=== PATIENT | male | born 1995 | race Caucasian/White ===

== ENCOUNTER 2016-08-23 22:37 | Emergency (ER) | payer BC ==
[2016-08-23 22:58] VITALS: BP 122/63; PULSE 110; RESP 18; TEMP 98
[2016-08-24 00:23] LABS: Appearance,Urine Cloudy (Clear); Bilirubin,Urine Negative (Negative); Glucose,Urine (UA) Negative (Negative); Ketones,Urine Negative (Negative); Leukocyte Esterase,Urine Large (Negative); Mucus,Urine Few /hpf; Nitrite,Urine Negative (Negative); Particle Count 6372; Protein,Urine 1+ (Negative); RBC,Urine 12 /hpf (0-5); Specific Gravity,Urine 1.023 (1.001-1.035); Squamous Epithelial Cell,Urine <1 /hpf (0-4); UA Billing (MACRO vs. MICRO) MICRO; Urobilinogen,Urine <2.0 mg/dL (<2.0); WBC,Urine >182 /hpf (0-5)
--- NOTE | 2016-08-24 00:29 | ED ---
Male Urogenital HPI - General Chief complaint: Urogenital Stated complaint: Male Time Seen by Provider: 08/23/16 23:43 Source: patient, RN notes reviewed Mode of arrival: ambulatory Limitations: no limitations - History of Present Illness Initial comments: Patient is a 21-year-old male presents emergency room for evaluation right testicle pain and dysuria. Patient states she began having right testicle pain about a week ago. Patient states since then the pain is gone worsening Swelling and erythema. Patient also states he been experiencing pain and burning during urination for the past week. Patient states that his girlfriend was diagnosed with Chlamydia about a month and a half ago and he was also written a prescription to be treated for it. Patient states he was never actually diagnosed with chlamydia. Patient denies any penile discharge. Patient denies any abdominal pain. Patient denies any fevers or chills. Patient denies nausea or vomiting. Patient denies any other history of STDs. - Related Data Home Medications Medication Instructions Recorded Confirmed No Known Home Medications [No 08/23/16 08/23/16 Known Home Medications] Allergies Allergy/AdvReac Type Severity Reaction Status Date / Time No Known Allergies Allergy Verified 08/23/16 22:57 Review of Systems ROS Statement: Those systems with pertinent positive or pertinent negative responses have been documented in the HPI. ROS Other: All systems not noted in ROS Statement are negative. 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 Limitations: no limitations General appearance: alert, in no apparent distress Head exam: Present: atraumatic, normocephalic, normal inspection Eye exam: Present: normal appearance ENT exam: Present: normal exam Neck exam: Present: normal inspection Respiratory exam: Absent: respiratory distress exam: Present: testicular tenderness (right), scrotal swelling (right), circumcision. Absent: urethral discharge Extremities exam: Present: normal inspection Back exam: Present: normal inspection Neurological exam: Present: alert, oriented X3, CN II-XII intact, normal gait Psychiatric exam: Present: normal affect, normal mood Skin exam: Present: warm, dry, intact, normal color. Absent: rash Course Vital Signs 08/23/16 22:52 Temperature 98.0 F Pulse Rate 110 H Respiratory 18 Rate Blood Pressure 122/63 O2 Sat by Pulse 97 Oximetry Medical Decision Making - Medical Decision Making Patient is 21-year-old male presents emergency room for evaluation of right scrotal pain and dysuria. Patient's urine suspicious for urinary tract infection. Patient's symptoms most likely cause from epididymitis. Chlamydia and gonorrhea cultures pending in urine. Will prophylactically treat patient with Rocephin and azithromycin. Scrotal ultrasound pending. Case discussed and passed on to Dr. Kmuar at 1:10 AM. - Lab Data Lab Results 08/24/16 Range/Units 00:05 Urine Color Yellow Urine Appearance Cloudy (Clear) Urine pH 6.0 (5.0-8.0) Ur Specific [place] 1.023 (1.001-1.035) Urine Protein 1+ H (Negative) Urine Glucose (UA) Negative (Negative) Urine Ketones Negative (Negative) Urine Blood Negative (Negative) Urine Nitrate Negative (Negative) Urine Bilirubin Negative (Negative) Urine Urobilinogen <2.0 (<2.0) mg/dL Ur Leukocyte Esterase Large H (Negative) Urine RBC 12 H (0-5) /hpf Urine WBC >182 H (0-5) /hpf Ur Squamous Epith Cells <1 (0-4) /hpf Urine Mucus Few H (None) /hpf Disposition Clinical Impression: Epididymitis Disposition: HOME SELF-CARE Condition: Good Instructions: Urinary Tract Infection in Men (ED), Epididymitis (ED) Additional Instructions: Please follow up with primary care provider in 24-48 hours. Take Tylenol or Motrin as in for pain. If any new symptom arises, symptoms worsen or fever develops, return to ER as soon as possible. Referrals: None,Stated [Primary Care Provider] - 1-2 days Time of Disposition: 01:55
[2016-08-24] MEDS ORDERED: cefTRIAXone 1,000 MG VIAL (IM USE) IM STA (01:13)
[2016-08-24] MEDS ORDERED: AZITHROMYCIN 500 MG TAB PO STA (01:14)
--- NOTE | 2016-08-24 01:30 | US ---
EXAMINATION TYPE: US scrotum with doppler. Grayscale and color Doppler Duplex imaging performed of azeb georges scrotum. DATE OF EXAM: 08/24/2016 12:58 AM COMPARISON: NONE CLINICAL HISTORY: Pain. EC patient with severe right scrotal pain and swelling x 1 week; patient dagoberto es trauma EXAM MEASUREMENTS: TESTICLES: Right Testicle: 3.8 x 2.6 x 2.3 cm Left Testicle: 4.2 x 2.8 x 1.7 cm EPIDIDYMIS HEAD: Right Epididymis: 0.8 x 1.2 x 1.4 cm Left Epididymis: 0.8 x 1.3 x 0.9 cm TECHNOLOGIST IMPRESSION: Doppler performed to assess for testicular vascularity; good bilateral color flow and waveforms are s een. There is no evidence of testicular torsion. Right: Presence of hydroceles: small amount of free fluid noted in right scrotal sac compared to left =1.8 x 1.2 x 0.4cm . Abnormally enlarged epididymis throughout its course with increased vascularity suggests inflammation / epididymitis with right side more prominent than left. Left: Abnormally enlarged epididymis throughout its course with increased vascularity suggests inflammation /epididymitis Presence of varicoceles: mildly prominent and tortuous veins on left side lower level with vein size = 2.6mm without Valsava maneuver. Multiple, but diffuse, hyperechoic foci scattered throughout left testicle suggests microcalcificatio ns. No abnormal masses are noted in both testicles. No significant varicoceles are noted. IMPRESSION: 1. There is benign microlithiasis/microcalcification of the left testicle. 2. Mild right-sided hydrocele with possible inflammatory process. 3. Possible epididymitis changes of both testicles. 4. No evidence of testicular torsion bilaterally.
== END 2016-08-24 01:57 | disposition home or self-care (01) ==
LOC: EC 22:37
DX: N45.1 Epididymitis (principal); N43.3 Hydrocele, unspecified; F17.200 Nicotine dependence, unspecified, uncomplicated
CPT/HCPCS: 99284; 96372; 81001; 87491; 87591; 93975; 76870; J0696

== ENCOUNTER 2018-06-26 22:32 | Emergency (ER) | payer BC ==
[2018-06-26 22:42] VITALS: RESP 16
--- NOTE | 2018-06-27 00:06 | ED ---
Wound/Laceration HPI - General Chief Complaint: Wound/Laceration Stated Complaint: Hand laceration Time Seen by Provider: 06/26/18 22:53 Source: patient Mode of arrival: ambulatory Limitations: no limitations - History of Present Illness Initial Comments: This is a 23-year-old male who presents emergency department for laceration on his right hand. The patient states that he cut it on a piece of glass. He states he was able to remove the glass from the hand. He denies any numbness, tingling, or weakness in the extremity. He states that the bleeding is well controlled. He states he came in because he wanted to have it repaired. He denies any fevers or chills. No other injuries. No other acute complaints. - Related Data Home Medications Medication Instructions Recorded Confirmed No Known Home Medications 08/23/16 08/23/16 Allergies Allergy/AdvReac Type Severity Reaction Status Date / Time No Known Allergies Allergy Verified 06/26/18 22:42 Review of Systems ROS Statement: Those systems with pertinent positive or pertinent negative responses have been documented in the HPI. ROS Other: All systems not noted in ROS Statement are negative. 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 History of Any Multi-Drug Resistant Organisms: None Reported Past Surgical History: Adenoidectomy Past Psychological History: ADD/ADHD Smoking Status: Current every day smoker Past Alcohol Use History: Occasional Past Drug Use History: None Reported General Exam - General Exam Comments Initial Comments: Constitutional: Awake alert Appears comfortable Head: Normocephalic atraumatic Eyes: no conjunctival injection No scleral icterus EOMI Neck: No JVD Supple Heart: Regular rate rhythm normal S1-S2 no murmurs Lungs: Clear to auscultation bilaterally No wheezing No rales Abdomen: Soft nondistended nontender Extremities: Non edematous DP pulses intact Radial pulses intact, the patient has a 3 cm laceration over the dorsum of the right hand between the webspace of the third and fourth digit. He also has a 0.5 cm laceration to the lateral aspect of the third digit at the PIP joint. The patient has full strength in the hand with finger extension and flexion. No evidence of tendon rupture. Neurovascularly intact distal to the injuries. Neuro: A&Ox3 No focal neurologic deficits Psych: Appropriate mood and affect Limitations: no limitations Course Vital Signs 06/26/18 22:39 Temperature 98.5 F Pulse Rate 77 Respiratory 16 Rate Blood Pressure 129/79 O2 Sat by Pulse 97 Oximetry Procedures - Laceration Laceration #1 Consent Obtained: verbal consent Indication: laceration Site: hand Size (cm): 3 Description: linear Depth: simple, single layer Anesthetic Used: lidocaine 1% Anesthesia Technique: local infiltration Amount (mls): 1 Pre-repair: wound explored, irrigated extensively Type of Sutures: nylon Size of Sutures: 4-0 Number of Sutures: 4 Technique: simple, interrupted Patient Tolerated Procedure: well, no complications Laceration #2 Consent Obtained: verbal consent Site: hand Description: linear Depth: simple, single layer Anesthetic Used: lidocaine 1% Anesthesia Technique: local infiltration Pre-repair: wound explored, irrigated extensively Type of Sutures: nylon Size of Sutures: 4-0 Number of Sutures: 2 Technique: simple, interrupted Patient Tolerated Procedure: well, no complications Medical Decision Making - Medical Decision Making This is a 23-year-old male who presented for finger laceration. The patient had an x-ray performed did not show any evidence for foreign body. I explored the wound and did not find any pieces of glass present. The patient's wound was irrigated extensively and then sutured with 40 sutures. The patient tolerated this well. He will go home. He was instructed using a pneumatic ointment on it twice a day and keep it covered. He said the sutures removed in 10-14 days. Told to return if he notices any redness, swelling, or purulent drainage. All questions answered. Disposition Clinical Impression: Laceration Disposition: HOME SELF-CARE Condition: Stable Instructions: Care For Your Stitches (ED), Laceration (ED) Additional Instructions: Have Sutures removed in 10-14 days. Is patient prescribed a controlled substance at d/c from ED?: No Referrals: None,Stated [Primary Care Provider] - 1-2 days
[2018-06-27 00:39] VITALS: BP 128/78; PULSE 74; TEMP 98.1
--- NOTE | 2018-06-27 00:46 | XR ---
EXAMINATION TYPE: XR hand complete RT DATE OF EXAM: 06/27/2018 COMPARISON: NONE HISTORY: Laceration TECHNIQUE: 3 views FINDINGS: I see no fracture nor dislocation. Joint spaces are normal. There is no sign of radiopaque foreign body. There are no pathologic calcifications. IMPRESSION: Negative right hand exam. No foreign body seen.
== END 2018-06-27 00:38 | disposition home or self-care (01) ==
LOC: EC 22:32
DX: S61.212A Laceration without foreign body of right middle finger without damage to nail, initial encounter (principal); S61.411A Laceration without foreign body of right hand, initial encounter; F17.200 Nicotine dependence, unspecified, uncomplicated; W25.XXXA Contact with sharp glass, initial encounter; Y93.G1 Activity, food preparation and clean up
CPT/HCPCS: 12002; 99283

== ENCOUNTER 2021-01-17 15:30 | Emergency (ER) | payer BC ==
[2021-01-17 15:38] VITALS: RESP 18; TEMP 98.3
[2021-01-17] MEDS ORDERED: SODIUM CHLORIDE 0.9% 1,000 ML IV ONE (15:58)
[2021-01-17 16:18] LABS: Basophils # (A) 0.1 k/uL (0-0.2); Basophils % (A) 0 %; Eosinophils # (A) 0.3 k/uL (0-0.7); Eosinophils % (A) 3 %; HCT 49.2 % (39.0-53.0); HGB 16.7 gm/dL (13.0-17.5); Lymphocytes # (A) 1.9 k/uL (1.0-4.8); Lymphocytes % (A) 17 %; MCH 32.3 pg (25.0-35.0); Mean Platelet Volume 6.8; Monocytes # (A) 0.4 k/uL (0-1.0); Monocytes % (A) 4 %; Neutrophils # (A) 8.1 k/uL (1.3-7.7); Neutrophils % (A) 75 %; Platelet Count 254 k/uL (150-450); RBC 5.18 m/uL (4.30-5.90); RDW 11.8 % (11.5-15.5); WBC 10.8 k/uL (3.8-10.6)
[2021-01-17 16:23] LABS: ALT 36 U/L (4-49); AST 26 U/L (17-59); African American GFR (CKD) >90 (>60 ml/min/1.73 sqM); Albumin 4.6 g/dL (3.5-5.0); Alkaline Phosphatase 52 U/L (38-126); Amylase 76 U/L (30-110); Anion Gap 7 mmol/L; Blood Urea Nitrogen 16 mg/dL (9-20); Calcium 9.6 mg/dL (8.4-10.2); Carbon Dioxide 29 mmol/L (22-30); Chloride 103 mmol/L (98-107); Glucose 109 mg/dL (74-99); Lipase 65 U/L (23-300); Non-African American GFR(CKD) >90 (>60 ml/min/1.73 sqM); Potassium 4.4 mmol/L (3.5-5.1); Sodium 139 mmol/L (137-145); Total Bilirubin 0.4 mg/dL (0.2-1.3)
--- NOTE | 2021-01-17 16:24 | ED ---
Abdominal Pain HPI - General Chief Complaint: Abdominal Pain Stated Complaint: abd pain Time Seen by Provider: 01/17/21 15:44 Source: patient, RN notes reviewed Mode of arrival: ambulatory Limitations: no limitations - History of Present Illness Initial Comments: This is a 25-year-old male presents emergency Department chief complaint of abdominal pain. Patient states he was in the shower started having stomach like he is in the vomit. Patient states he did use meth today in which she states she uses daily. His been using for over 3-4 years. Patient is here with family. Patient denies fevers chills no significant diarrhea constipation though he states she's been having rectal bleeding for over one year states is only when he wipes stomach since the stool. He cannot localizes abdominal pain. Patient the shortness breath but states he had some chest discomfort earlier but states he occasionally gets his with his meth use. - Related Data Home Medications Medication Instructions Recorded Confirmed No Known Home Medications 08/23/16 08/23/16 Allergies Allergy/AdvReac Type Severity Reaction Status Date / Time No Known Allergies Allergy Verified 01/17/21 15:38 Review of Systems ROS Statement: Those systems with pertinent positive or pertinent negative responses have been documented in the HPI. ROS Other: All systems not noted in ROS Statement are negative. 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 Absent: scleral icterus, conjunctival injection, periorbital swelling Respiratory exam: Present: normal lung sounds bilaterally. Absent: respiratory distress, wheezes, rales, rhonchi, stridor Cardiovascular Exam: Present: regular rate, normal rhythm, normal heart sounds. Absent: systolic murmur, diastolic murmur, rubs, gallop, clicks GI/Abdominal exam: Present: soft, tenderness, normal bowel sounds. Absent: distended, guarding, rebound, rigid Back exam: Absent: CVA tenderness (R), CVA tenderness (L) Neurological exam: Present: alert Skin exam: Present: warm, dry, intact, normal color. Absent: rash Course Vital Signs 01/17/21 15:35 Temperature 98.3 F Pulse Rate 53 L Respiratory 18 Rate Blood Pressure 119/68 O2 Sat by Pulse 98 Oximetry Medical Decision Making - Medical Decision Making 25-year-old presented for abdominal pain, complaint of rectal bleeding which has been going on for over one year. Patient does abuse methamphetamines. Patient workup was negative otherwise. Patient will follow-up with GI for colonoscopy and return for any worsening change in symptoms. - Lab Data Result diagrams: 01/17/21 16:01 01/17/21 16:01 Lab Results 01/17/21 01/17/21 01/17/21 Range/Units 15:58 15:58 16:01 WBC 10.8 H (3.8-10.6) k/uL RBC 5.18 (4.30-5.90) m/uL Hgb 16.7 (13.0-17.5) gm/dL Hct 49.2 (39.0-53.0) % MCV 95.0 (80.0-100.0) fL MCH 32.3 (25.0-35.0) pg MCHC 34.0 (31.0-37.0) g/dL RDW 11.8 (11.5-15.5) % Plt Count 254 (150-450) k/uL MPV 6.8 Neutrophils % 75 % Lymphocytes % 17 % Monocytes % 4 % Eosinophils % 3 % Basophils % 0 % Neutrophils # 8.1 H (1.3-7.7) k/uL Lymphocytes # 1.9 (1.0-4.8) k/uL Monocytes # 0.4 (0-1.0) k/uL Eosinophils # 0.3 (0-0.7) k/uL Basophils # 0.1 (0-0.2) k/uL Sodium (137-145) mmol/L Potassium (3.5-5.1) mmol/L Chloride (98-107) mmol/L Carbon Dioxide (22-30) mmol/L Anion Gap mmol/L BUN (9-20) mg/dL Creatinine (0.66-1.25) mg/dL Est GFR (CKD-EPI)AfAm (>60 ml/min/1.73 sqM) Est GFR (CKD-EPI)NonAf (>60 ml/min/1.73 sqM) Glucose (74-99) mg/dL Plasma Lactic Acid Doug 1.4 (0.7-2.0) mmol/L Calcium (8.4-10.2) mg/dL Total Bilirubin (0.2-1.3) mg/dL AST (17-59) U/L ALT (4-49) U/L Alkaline Phosphatase (38-126) U/L Troponin I <0.012 (0.000-0.034) ng/mL Total Protein (6.3-8.2) g/dL Albumin (3.5-5.0) g/dL Amylase (30-110) U/L Lipase (23-300) U/L Urine Color Urine Appearance (Clear) Urine pH (5.0-8.0) Ur Specific [place] (1.001-1.035) Urine Protein (Negative) Urine Glucose (UA) (Negative) Urine Ketones (Negative) Urine Blood (Negative) Urine Nitrite (Negative) Urine Bilirubin (Negative) Urine Urobilinogen (<2.0) mg/dL Ur Leukocyte Esterase (Negative) Amorphous Sediment (None) /hpf Urine Mucus (None) /hpf Urine Opiates Screen (NotDetected) Ur Oxycodone Screen (NotDetected) Urine Methadone Screen (NotDetected) Ur Propoxyphene Screen (NotDetected) Ur Barbiturates Screen (NotDetected) U Tricyclic Antidepress (NotDetected) Ur Phencyclidine Scrn (NotDetected) Ur Amphetamines Screen (NotDetected) U Methamphetamines Scrn (NotDetected) U Benzodiazepines Scrn (NotDetected) Urine Cocaine Screen (NotDetected) U Marijuana (THC) Screen (NotDetected) 01/17/21 01/17/21 01/17/21 Range/Units 16:01 16:01 16:01 WBC (3.8-10.6) k/uL RBC (4.30-5.90) m/uL Hgb (13.0-17.5) gm/dL Hct (39.0-53.0) % MCV (80.0-100.0) fL MCH (25.0-35.0) pg MCHC (31.0-37.0) g/dL RDW (11.5-15.5) % Plt Count (150-450) k/uL MPV Neutrophils % % Lymphocytes % % Monocytes % % Eosinophils % % Basophils % % Neutrophils # (1.3-7.7) k/uL Lymphocytes # (1.0-4.8) k/uL Monocytes # (0-1.0) k/uL Eosinophils # (0-0.7) k/uL Basophils # (0-0.2) k/uL Sodium 139 (137-145) mmol/L Potassium 4.4 (3.5-5.1) mmol/L Chloride 103 (98-107) mmol/L Carbon Dioxide 29 (22-30) mmol/L Anion Gap 7 mmol/L BUN 16 (9-20) mg/dL Creatinine 0.90 (0.66-1.25) mg/dL Est GFR (CKD-EPI)AfAm >90 (>60 ml/min/1.73 sqM) Est GFR (CKD-EPI)NonAf >90 (>60 ml/min/1.73 sqM) Glucose 109 H (74-99) mg/dL Plasma Lactic Acid Doug (0.7-2.0) mmol/L Calcium 9.6 (8.4-10.2) mg/dL Total Bilirubin 0.4 (0.2-1.3) mg/dL AST 26 (17-59) U/L ALT 36 (4-49) U/L Alkaline Phosphatase 52 (38-126) U/L Troponin I (0.000-0.034) ng/mL Total Protein 7.0 (6.3-8.2) g/dL Albumin 4.6 (3.5-5.0) g/dL Amylase 76 (30-110) U/L Lipase 65 (23-300) U/L Urine Color Yellow Urine Appearance Turbid (Clear) Urine pH 7.0 (5.0-8.0) Ur Specific [place] 1.019 (1.001-1.035) Urine Protein Trace H (Negative) Urine Glucose (UA) Negative (Negative) Urine Ketones Negative (Negative) Urine Blood Negative (Negative) Urine Nitrite Negative (Negative) Urine Bilirubin Negative (Negative) Urine Urobilinogen <2.0 (<2.0) mg/dL Ur Leukocyte Esterase Negative (Negative) Amorphous Sediment Moderate H (None) /hpf Urine Mucus Occasional H (None) /hpf Urine Opiates Screen Not Detected (NotDetected) Ur Oxycodone Screen Not Detected (NotDetected) Urine Methadone Screen Not Detected (NotDetected) Ur Propoxyphene Screen Not Detected (NotDetected) Ur Barbiturates Screen Not Detected (NotDetected) U Tricyclic Antidepress Not Detected (NotDetected) Ur Phencyclidine Scrn Not Detected (NotDetected) Ur Amphetamines Screen Detected H (NotDetected) U Methamphetamines Scrn Detected H (NotDetected) U Benzodiazepines Scrn Not Detected (NotDetected) Urine Cocaine Screen Not Detected (NotDetected) U Marijuana (THC) Screen Detected H (NotDetected) Disposition Clinical Impression: Abdominal pain, Rectal bleeding, Methamphetamine abuse Disposition: HOME SELF-CARE Condition: Stable Instructions (If sedation given, give patient instructions): Rectal Bleeding (ED), Hemorrhoids (ED) Additional Instructions: Follow-up with PCP and GI for colonoscopy. Please return to the Emergency Department if symptoms worsen or any other concerns. Is patient prescribed a controlled substance at d/c from ED?: No Referrals: None,Stated [Primary Care Provider] - 1-2 days Siri Ridley MD [STAFF PHYSICIAN] - 1-2 days Time of Disposition: 18:06
[2021-01-17 17:58] LABS: Amphetamine Screen,Urine Detected (NotDetected); Barbiturate Screen,Urine Not Detected (NotDetected); Benzodiazepines Screen,Urine Not Detected (NotDetected); Cocaine Screen,Urine Not Detected (NotDetected); Methadone Screen, Urine Not Detected (NotDetected); Opiate Screen,Urine Not Detected (NotDetected); Oxycodone Screen, Urine Not Detected (NotDetected); Phencyclidine Screen,Urine Not Detected (NotDetected); Tricyclic Antidepressant,Urine Not Detected (NotDetected); Urn Cannabinoid Scrn Detected (NotDetected)
[2021-01-17 18:00] LABS: Amorphous Sediment,Urine Moderate /hpf; Appearance,Urine Turbid (Clear); Bilirubin,Urine Negative (Negative); Blood,Urine Negative (Negative); Color,Urine Yellow; Glucose,Urine (UA) Negative (Negative); Ketones,Urine Negative (Negative); Leukocyte Esterase,Urine Negative (Negative); Mucus,Urine Occasional /hpf; Nitrite,Urine Negative (Negative); Protein,Urine Trace (Negative); Specific Gravity,Urine 1.019 (1.001-1.035); Urobilinogen,Urine <2.0 mg/dL (<2.0)
[2021-01-17 18:29] VITALS: BP 120/68; PULSE 61
== END 2021-01-17 18:28 | disposition home or self-care (01) ==
LOC: EC 15:30
DX: K62.5 Hemorrhage of anus and rectum (principal); F15.10 Other stimulant abuse, uncomplicated; R10.9 Unspecified abdominal pain; I10 Essential (primary) hypertension; J45.909 Unspecified asthma, uncomplicated; F17.200 Nicotine dependence, unspecified, uncomplicated; R07.89 Other chest pain; F90.9 Attention-deficit hyperactivity disorder, unspecified type; F12.90 Cannabis use, unspecified, uncomplicated
CPT/HCPCS: 36415; 80053; 80306; 81001; 82150; 83605; 83690; 84484; 85025; 93005; 99284

== ENCOUNTER 2022-03-16 21:16 | Emergency (ER) | payer BC ==
[2022-03-16 21:19] VITALS: BP 141/80; PULSE 83; RESP 18; TEMP 98.6
[2022-03-16] MEDS ORDERED: PROPARACAINE 0.5% OPHTH DROPS 15 ML BTL LEFT EYE STA (22:03)
[2022-03-16] MEDS ORDERED: FLUORESCEIN STRIPS 1 MG STRIP LEFT EYE ONE (22:05)
--- NOTE | 2022-03-16 22:07 | ED ---
Eye Problem HPI - General Chief complaint: Eye Problems Stated complaint: Foreign object stuck in L eye Time Seen by Provider: 03/16/22 22:00 Source: patient Mode of arrival: ambulatory Limitations: no limitations - History of Present Illness Initial comments: 27-year-old male presents ambulatory to the emergency room with complaints of possible foreign body in his left eye. 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 chief complaint: eye redness, foreign body -: hour(s) (10) Onset Description: gradual Location: left eye Place: street/outdoors Eye Symptoms: redness, pain Severity scale (1-10): 3 - Related Data Patient Tetanus UTD: Yes Previous Rx's Medication Instructions Recorded Ciprofloxacin Ophth Soln [Ciloxan 2 drops LEFT EYE QID 5 Days #2.5 ml 03/16/22 0.3% Ophth Soln] Allergies Allergy/AdvReac Type Severity Reaction Status Date / Time No Known Allergies Allergy Verified 03/16/22 21:19 Review of Systems ROS Statement: Those systems with pertinent positive or pertinent negative responses have been documented in the HPI. ROS Other: All systems not noted in ROS Statement are negative. 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 Absent: scleral icterus, periorbital swelling, periorbital tenderness Expanded Eyelids: Normal Inspection: Bilateral Pupils: Regular, Round: Bilateral Sclera/Conjunctival: Injection: Left (Corneal Abrasion at 11/12:00) Neck exam: Present: normal inspection, full ROM. Absent: tenderness, meningismus, thyromegaly Respiratory exam: Absent: respiratory distress, accessory muscle use Cardiovascular Exam: Present: regular rate Neurological exam: Present: alert, oriented X3 Psychiatric exam: Present: normal affect, normal mood Skin exam: Present: warm, dry, normal color. Absent: cyanosis, diaphoretic Course Vital Signs 03/16/22 21:17 Temperature 98.6 F Pulse Rate 83 Respiratory 18 Rate Blood Pressure 141/80 O2 Sat by Pulse 100 Oximetry Medical Decision Making - Medical Decision Making Fluorescein with Sawyer lamp exam shows corneal abrasion at 11 to 12:00. No evidence of foreign body. Negative Kinza sign. Extraocular eye movements are intact. Patient states his tetanus shot is up-to-date. Patient will be placed on ciprofloxacin eyedrops 4 times a day for the next 5 days and follow-up with ophthalmology. Strict return to the emergency room with any new or concerning symptoms including increased pain or vision changes. Patient is agreeable to this plan of care. Case discussed with Dr. Arellano. Disposition Clinical Impression: Corneal abrasion Disposition: HOME SELF-CARE Condition: Good Instructions (If sedation given, give patient instructions): Corneal Abrasion (ED) Additional Instructions: Use the antibiotic yedrops as prescribed. Follow-up with ophthalmology next week. Return to the emergency room with any new or concerning symptoms including increased pain or vision changes. Prescriptions: Ciprofloxacin Ophth Soln [Ciloxan 0.3% Ophth Soln] 2 drops LEFT EYE QID 5 Days #2.5 ml Is patient prescribed a controlled substance at d/c from ED?: No Referrals: None,Stated [Primary Care Provider] - 1-2 days Namrata Travis MD [STAFF PHYSICIAN] - 1-2 days Time of Disposition: 23:31
[2022-03-16] MEDS ORDERED: CIPROFLOXACIN 0.3% OPHTH SOLN 5 ML BTL LEFT EYE STA (23:31)
== END 2022-03-16 23:55 | disposition home or self-care (01) ==
LOC: EC 21:16
DX: S05.02XA Injury of conjunctiva and corneal abrasion without foreign body, left eye, initial encounter (principal); J45.909 Unspecified asthma, uncomplicated; I10 Essential (primary) hypertension; F17.200 Nicotine dependence, unspecified, uncomplicated; X58.XXXA Exposure to other specified factors, initial encounter
CPT/HCPCS: 99283

== ENCOUNTER 2022-07-27 10:55 | Emergency (ER) | payer BC, OTHER ==
[2022-07-27 10:59] VITALS: BP 147/94; PULSE 77; RESP 18; TEMP 98.6
--- NOTE | 2022-07-27 11:18 | ED ---
Male Urogenital HPI - General Chief complaint: Urogenital Stated complaint: Jock Itch Time Seen by Provider: 07/27/22 11:07 Source: patient, RN notes reviewed Mode of arrival: ambulatory Limitations: no limitations - History of Present Illness Initial comments: 27-year-old male presented to the emergency Department with chief complaint of jock itch. Patient states that he's had this recurrent over since he residential. Patient states that the rash is very itchy but not painful. Denies any open lesions or sores. Patient denies any history of herpes zoster. Patient states that he's been using some [id number] stuff but woke up with worsening symptoms or he was concerned. Patient offers no complaints. Denies penile drainage. - Related Data Previous Rx's Medication Instructions Recorded Ciprofloxacin Ophth Soln [Ciloxan 2 drops LEFT EYE QID 5 Days #2.5 ml 03/16/22 0.3% Ophth Soln] Clotrimazole/Betameth Cream 1 applic TOPICAL BID #45 gm 07/27/22 [Lotrisone] valACYclovir HCL [Valtrex] 1,000 mg PO BID #14 tablet 07/27/22 Allergies Allergy/AdvReac Type Severity Reaction Status Date / Time No Known Allergies Allergy Verified 03/16/22 21:19 Review of Systems ROS Statement: Those systems with pertinent positive or pertinent negative responses have been documented in the HPI. ROS Other: All systems not noted in ROS Statement are negative. 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 Absent: respiratory distress, wheezes, rales, rhonchi, stridor Cardiovascular Exam: Present: regular rate, normal rhythm, normal heart sounds. Absent: systolic murmur, diastolic murmur, rubs, gallop, clicks GI/Abdominal exam: Present: soft, normal bowel sounds. Absent: distended, tenderness, guarding, rebound, rigid exam: Absent: normal inspection (Erythematous skin changes, small follicular changes in the groin,. periGenital region), testicular tenderness, urethral discharge, vertical testicular lie Neurological exam: Present: alert Course Vital Signs 07/27/22 10:55 Temperature 98.6 F Pulse Rate 77 Respiratory 18 Rate Blood Pressure 147/94 O2 Sat by Pulse 100 Oximetry Medical Decision Making - Medical Decision Making 27-year-old male presented for rash in his groin. This does appear to be tinea cruris, though slight concern as there is some rash consistent on. I'll shaft concerning for possible early herpes simplex patient was started on Valtrex, antifungal. Patient agrees to plan. Disposition Clinical Impression: Tinea cruris Disposition: HOME SELF-CARE Condition: Stable Instructions (If sedation given, give patient instructions): Daquan Slaughter (ED) Additional Instructions: Please return to the Emergency Department if symptoms worsen or any other concerns. Prescriptions: Clotrimazole/Betameth Cream [Lotrisone] 1 applic TOPICAL BID #45 gm valACYclovir HCL [Valtrex] 1,000 mg PO BID #14 tablet Is patient prescribed a controlled substance at d/c from ED?: No Referrals: None,Stated [Primary Care Provider] - 1-2 days Time of Disposition: 11:18
== END 2022-07-27 11:26 | disposition home or self-care (01) ==
LOC: EC 10:55
DX: B35.6 Tinea cruris (principal); I10 Essential (primary) hypertension; J45.909 Unspecified asthma, uncomplicated; F17.200 Nicotine dependence, unspecified, uncomplicated; F90.9 Attention-deficit hyperactivity disorder, unspecified type; F12.90 Cannabis use, unspecified, uncomplicated
CPT/HCPCS: 99282

== ENCOUNTER 2023-05-26 19:18 | Emergency (ER) | payer SELFPAY ==
[2023-05-26] MEDS ORDERED: DIPH,PERTUS(ACELL)TETVAC-LF 0.5 ML VIAL IM ONE (20:01)
[2023-05-26] MEDS ORDERED: LIDOCAINE 1% INJ 10MG/ML (20 ML MDV) SQ ONE (20:01)
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
[2023-05-26 21:09] VITALS: BP 150/86; PULSE 77; RESP 18; TEMP 97.9
== END 2023-05-26 21:04 | disposition home or self-care (01) ==
LOC: EC 19:18
DX: S01.81XA Laceration without foreign body of other part of head, initial encounter (principal); J45.909 Unspecified asthma, uncomplicated; I10 Essential (primary) hypertension; F17.200 Nicotine dependence, unspecified, uncomplicated; F12.90 Cannabis use, unspecified, uncomplicated; Z23 Encounter for immunization; W22.8XXA Striking against or struck by other objects, initial encounter
CPT/HCPCS: 90715; 99282; 90471; 12011; J2001

== ENCOUNTER 2023-06-01 02:10 | Emergency (ER) | payer SELFPAY ==
[2023-06-01] MEDS ORDERED: KETAMINE 50 MG/ML 10 ML VIAL IM ONE (02:14)
[2023-06-01] MEDS ORDERED: TOPICAL SKIN ADHESIVE 1 EACH AMP TOPICAL ONE (02:51)
--- NOTE | 2023-06-01 03:06 | CT ---
EXAM: CT Head Without Intravenous Contrast CLINICAL HISTORY: trauma TECHNIQUE: Axial computed tomography images of the head/brain without intravenous contrast. CTDI is 45.2 mGy and DLP is 1366 mGy-cm. This CT exam was performed using one or more of the following dose reduction techniques: automated exposure control, adjustment of the mA and/or kV according to patient size, and/or use of iterative reconstruction technique. COMPARISON: No relevant prior studies available. FINDINGS: Brain: Unremarkable. No hemorrhage. No significant white matter disease. No edema. Ventricles: Unremarkable. No ventriculomegaly. Bones/joints: Unremarkable. No acute fracture. Soft tissues: Suspected bilateral periorbital soft tissue contusive changes. No radiopaque foreign body. Sinuses: Unremarkable as visualized. No acute sinusitis. Mastoid air cells: Unremarkable as visualized. No mastoid effusion. IMPRESSION: 1. No acute intracranial process identified. 2. Suspected bilateral periorbital soft tissue contusive changes. No radiopaque foreign body. No skull fracture. EXAM: CT Cervical Spine Without Intravenous Contrast CLINICAL HISTORY: trauma TECHNIQUE: Axial computed tomography images of the cervical spine without intravenous contrast. CTDI is 13.1 mGy and DLP is 400.7 mGy-cm. This CT exam was performed using one or more of the following dose reduction techniques: automated exposure control, adjustment of the mA and/or kV according to patient size, and/or use of iterative reconstruction technique. COMPARISON: No relevant prior studies available. FINDINGS: Vertebrae: The vertebral bodies are intact without acute osseous traumatic injury. No anterolisthesis or retrolisthesis is identified. The facet joints are well aligned without subluxation or dislocation. The pedicles, transverse processes and spinous processes are intact. Discs/spinal canal/neural foramina: No acute findings. No osseous spinal canal stenosis. Soft tissues: Unremarkable. Lung apices: The included lung apices demonstrate no evidence for significant acute traumatic injury. IMPRESSION: No acute osseous traumatic injury or significant abnormal alignment involving the cervical spine.
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
[2023-06-01 03:19] LABS: Basophils % (A) 1 %; Eosinophils # (A) 0.2 k/uL (0-0.7); Eosinophils % (A) 3 %; HCT 47.1 % (39.0-53.0); HGB 16.1 gm/dL (13.0-17.5); Lymphocytes # (A) 1.1 k/uL (1.0-4.8); Lymphocytes % (A) 19 %; MCH 32.5 pg (25.0-35.0); MCHC 34.3 g/dL (31.0-37.0); MCV 94.7 fL (80.0-100.0); Mean Platelet Volume 7.8; Monocytes # (A) 0.3 k/uL (0-1.0); Monocytes % (A) 5 %; Neutrophils # (A) 4.2 k/uL (1.3-7.7); Neutrophils % (A) 71 %; Platelet Count 233 k/uL (150-450); RBC 4.97 m/uL (4.30-5.90); RDW 12.5 % (11.5-15.5)
[2023-06-01 03:28] LABS: ALT 26 U/L (4-49); AST 29 U/L (17-59); African American GFR (CKD) >90 (>60 ml/min/1.73 sqM); Albumin 4.8 g/dL (3.5-5.0); Alkaline Phosphatase 76 U/L (38-126); Anion Gap 20 mmol/L; Blood Urea Nitrogen 11 mg/dL (9-20); Calcium 9.3 mg/dL (8.4-10.2); Carbon Dioxide 19 mmol/L (22-30); Chloride 104 mmol/L (98-107); Glucose 134 mg/dL (74-99); Non-African American GFR(CKD) >90 (>60 ml/min/1.73 sqM); Potassium 3.9 mmol/L (3.5-5.1); Sodium 143 mmol/L (137-145); Total Bilirubin 0.5 mg/dL (0.2-1.3); Total Protein 7.2 g/dL (6.3-8.2)
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
[2023-06-01 03:47] LABS: INR 0.9 (<1.2); Prothrombin Time 10.2 sec (10.0-12.5)
[2023-06-01 03:56] LABS: Alcohol 213 mg/dL
[2023-06-01] MEDS ORDERED: SODIUM CHLORIDE 0.9% 1,000 ML IV ONE (04:00)
[2023-06-01 04:27] LABS: Partial Thromboplastin Time 19.6 sec (22.0-30.0)
[2023-06-01] MEDS ORDERED: ONDANSETRON 4 MG/2 ML VIAL IM STA (07:41)
[2023-06-01 08:02] VITALS: RESP 20; TEMP 98.5
[2023-06-01 09:02] VITALS: BP 145/85; PULSE 86
== END 2023-06-01 08:50 | disposition home or self-care (01) ==
LOC: EC 02:10
DX: F10.129 Alcohol abuse with intoxication, unspecified (principal); R00.0 Tachycardia, unspecified; I45.10 Unspecified right bundle-branch block; J45.909 Unspecified asthma, uncomplicated; I10 Essential (primary) hypertension; F17.200 Nicotine dependence, unspecified, uncomplicated; F12.90 Cannabis use, unspecified, uncomplicated; Y90.7 Blood alcohol level of 200-239 mg/100 ml; V49.40XA Driver injured in collision with unspecified motor vehicles in traffic accident, initial encounter
CPT/HCPCS: 36415; 93005; 86900; 86901; 80053; 83605; 84484; 85025; 85610; 85730; 86850; 80320; 72125; 70450; 71260; 74177; 99291; 96360; 96372 ×2; J2405; Q9967

== ENCOUNTER 2024-03-16 04:48 | Emergency (ER) | payer SELFPAY | END 2024-03-16 06:37 | disposition home or self-care (01) | LOC: EC 04:48 | DX: A64 Unspecified sexually transmitted disease (principal) | CPT/HCPCS: 99283 ==

== ENCOUNTER 2024-06-21 04:43 | Emergency (ER) | payer OTHER ==
[2024-06-21 04:55] VITALS: RESP 18
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
[2024-06-21] MEDS: KETOROLAC 15 MG/ML 1 ML VIAL IM STA (05:08)
[2024-06-21] MEDS: ACETAMINOPHEN TAB 500 MG TAB PO STA (05:13)
[2024-06-21] MEDS: traMADol 50 MG TAB PO STA (05:23)
[2024-06-21 05:28] VITALS: BP 145/95; PULSE 87; TEMP 97.7
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
[2024-06-21 06:07] LABS: Amorphous Sediment,Urine Rare /hpf; Appearance,Urine Cloudy (Clear); Bilirubin,Urine Negative (Negative); Blood,Urine Negative (Negative); Budding Yeast,Urine Few /hpf; Color,Urine Light Yellow; Glucose,Urine (UA) Negative (Negative); Ketones,Urine Negative (Negative); Leukocyte Esterase,Urine Negative (Negative); Mucus,Urine Rare /hpf; Nitrite,Urine Negative (Negative); Protein,Urine Negative (Negative); RBC,Urine 1 /hpf (0-5); Specific Gravity,Urine 1.016 (1.001-1.035); Squamous Epithelial Cell,Urine <1 /hpf (0-4); Urobilinogen,Urine <2.0 mg/dL (<2.0); WBC,Urine 1 /hpf (0-5)
== END 2024-06-21 05:28 | disposition home or self-care (01) ==
LOC: EC 04:43
DX: M25.559 Pain in unspecified hip (principal); F17.200 Nicotine dependence, unspecified, uncomplicated; V43.52XA Car driver injured in collision with other type car in traffic accident, initial encounter; Y92.410 Unspecified street and highway as the place of occurrence of the external cause
CPT/HCPCS: 71045; 72170; 81001; 99284

== ENCOUNTER 2024-08-14 00:58 | Emergency (ER) | payer OTHER ==
[2024-08-14 01:05] VITALS: TEMP 98.3
--- NOTE | 2024-08-14 01:26 | ED ---
General Adult HPI - General Chief complaint: Upper Respiratory Infection Stated complaint: Possible Covid 2/2 Time Seen by Provider: 08/14/24 01:04 Source: patient Mode of arrival: ambulatory Limitations: no limitations - History of Present Illness Initial comments: 29-year-old male presenting with chief complaint of URI-like symptoms. Patient has been having cough and congestion. States that this is a productive cough. Also admits to sore throat nausea and vomiting. He has some chest soreness from coughing. No dyspnea. No abdominal pain. No fever. - Related Data Previous Rx's Medication Instructions Recorded Ciprofloxacin Ophth Soln [Ciloxan 2 drops LEFT EYE QID 5 Days #2.5 ml 03/16/22 0.3% Ophth Soln] Clotrimazole/Betameth Cream 1 applic TOPICAL BID #45 gm 07/27/22 [Lotrisone] valACYclovir HCL [Valtrex] 1,000 mg PO BID #14 tablet 07/27/22 Albuterol Nebulized [Ventolin 2.5 mg INHALATION Q4H PRN 8 Days 08/14/24 Nebulized] #150 ml predniSONE [Deltasone] 20 mg PO DAILY 4 Days #4 tab 08/14/24 Allergies Allergy/AdvReac Type Severity Reaction Status Date / Time No Known Allergies Allergy Verified 08/14/24 01:05 Review of Systems ROS Statement: Those systems with pertinent positive or pertinent negative responses have been documented in the HPI. ROS Other: All systems not noted in ROS Statement are negative. 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 Absent: meningismus Respiratory exam: Present: normal lung sounds bilaterally. Absent: respiratory distress, wheezes, rales, rhonchi, stridor Cardiovascular Exam: Present: regular rate, normal rhythm, normal heart sounds. Absent: systolic murmur, diastolic murmur, rubs, gallop, clicks Neurological exam: Present: alert, oriented X3 Psychiatric exam: Present: normal affect, normal mood Skin exam: Present: warm, dry Course Vital Signs 08/14/24 01:03 Temperature 98.3 F Pulse Rate 88 Respiratory 18 Rate Blood Pressure 134/84 O2 Sat by Pulse 100 Oximetry Medical Decision Making - Medical Decision Making Was pt. sent in by a medical professional or institution (, PA, MIXING PLANT OPERATOR, urgent care, hospital, or [facility]...) When possible be specific @ -[No] Did you speak to anyone other than the patient for history (EMS, parent, family, police, friend...)? What history was obtained from this source @ -[No] Did you review nursing and triage notes (agree or disagree)? Why? @ -[I reviewed and agree with nursing and triage notes] Were old charts reviewed (outside hosp., previous admission, EMS record, old EKG, old radiological studies, urgent care reports/EKG's, [facility] records)? Report findings @ -[No old charts were reviewed] Differential Diagnosis (chest pain, altered mental status, abdominal pain women, abdominal pain men, vaginal bleeding, weakness, fever, dyspnea, syncope, headache, dizziness, GI bleed, back pain, seizure, CVA, palpatations, mental health, musculoskeletal)? @ -Differential includes influenza, RSV, COVID, pneumonia, bronchitis, asthma exacerbation, other viral process, this is not an all-inclusive list EKG interpreted by me (3pts min.). @ -[As above] X-rays interpreted by me (1pt min.). @ -Chest x-ray shows no evidence of acute process on my interpretation CT interpreted by me (1pt min.). @ -[None done] U/S interpreted by me (1pt. min.). @ -[None done] What testing was considered but not performed or refused? (CT, X-rays, U/S, labs)? Why? @ -[None] What meds were considered but not given or refused? Why? @ -[None] Did you discuss the management of the patient with other professionals (professionals i.e. , VICKI, MIXING PLANT OPERATOR, lab, RT, psych nurse, social welfare clerk, kitchen operator, te acher, aoc operations intelligence officer, case investigator)? Give summary @ -[No] Was smoking cessation discussed for >3mins.? @ -[No] Was critical care preformed (if so, how long)? @ -[No] Were there social determinants of health that impacted care today? How? (Homelessness, low income, unemployed, alcoholism, drug addiction, transportation, low edu. Level, literacy, decrease access to med. care, prison, rehab)? @ -[No] Was there de-escalation of care discussed even if they declined (Discuss DNR or withdrawal of care, Hospice)? DNR status @ -[No] What co-morbidities impacted this encounter? (DM, HTN, Smoking, COPD, CAD, Cancer, CVA, ARF, Chemo, Hep., AIDS, mental health diagnosis, sleep apnea, morbid obesity)? @ -[None] Was patient admitted / discharged? Hospital course, mention meds given and route, prescriptions, significant lab abnormalities, going to OR and other pertinent info. @ -29-year-old male with URI-like symptoms. History and physical examination are conducted. He is negative for COVID, influenza, RSV, group A strep. No evidence of consolidation on his chest x-ray. Patient is educated on today's findings. He is sent refills for his albuterol nebulizer as well as a 4-day course of steroids. Follow-up with PCP. Report back to ER with any new or worsening symptoms. Discussed return parameters and answered all questions. Patient conveyed verbal understanding and agreed to the plan. I discussed this case in detail with my attending Dr. Owen Undiagnosed new problem with uncertain prognosis? @ -[No] Drug Therapy requiring intensive monitoring for toxicity (Heparin, Nitro, Insulin, Cardizem)? @ -[No] Were any procedures done? @ -[No] Diagnosis/symptom? @ -URI Acute, or Chronic, or Acute on Chronic? @ -Acute Uncomplicated (without systemic symptoms) or Complicated (systemic symptoms)? @ -Uncomplicated Side effects of treatment? @ -[No] Exacerbation, Progression, or Severe Exacerbation? @ -[No] Poses a threat to life or bodily function? How? (Chest pain, [place], [place], pneumonia, PE, COPD, DKA, ARF, appy, cholecystitis, CVA, Diverticulitis, Homicidal, Suicidal, threat to staff... and all critical care pts) @ -Unlikely - Lab Data Lab Results 08/14/24 08/14/24 Range/Units 01:21 01:21 Influenza Type A (PCR) Not Detected (Not Detectd) Influenza Type B (PCR) Not Detected (Not Detectd) RSV (PCR) Not Detected (Not Detectd) SARS-CoV-2 (PCR) Not Detected (Not Detectd) Group A Strep (PCR) NOT DETECTED (Not Detectd) Disposition Clinical Impression: Upper respiratory tract infection Disposition: HOME SELF-CARE Condition: Good Instructions (If sedation given, give patient instructions): Upper Respiratory Infection (ED) Additional Instructions: Follow-up with PCP. Report back to ER with any new or worsening symptoms. Prescriptions: predniSONE [Deltasone] 20 mg PO DAILY 4 Days #4 tab Albuterol Nebulized [Ventolin Nebulized] 2.5 mg INHALATION Q4H PRN 8 Days #150 ml PRN Reason: Shortness Of Breath Is patient prescribed a controlled substance at d/c from ED?: No Referrals: Mitchel Hamm MD [Primary Care Provider] - 1-2 days Time of Disposition: 02:31
[2024-08-14 02:51] VITALS: BP 133/80; PULSE 94; RESP 20
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
== END 2024-08-14 02:47 | disposition home or self-care (01) ==
LOC: EC 00:58
DX: J06.9 Acute upper respiratory infection, unspecified (principal); F17.200 Nicotine dependence, unspecified, uncomplicated
CPT/HCPCS: 71046; 87636; 87651; 99284